=== PATIENT | female | born 1995 | race Two or more races ===

== ENCOUNTER 2021-08-05 16:16 | Outpatient (CLI) | payer OTHER | END 2021-08-05 17:21 | disposition home or self-care (01) | LOC: PRENATAL 16:16 | PROVIDERS: ATTEND Obstetrics & Gynecology Maternal & Fetal Medicine | DX: O35.0XX0 Maternal care for (suspected) central nervous system malformation in fetus, not applicable or unspecified (principal); O35.3XX0 Maternal care for (suspected) damage to fetus from viral disease in mother, not applicable or unspecified; Z3A.27 27 weeks gestation of pregnancy ==

== ENCOUNTER 2021-10-07 10:02 | Outpatient (CLI) | payer OTHER | END 2021-10-07 11:14 | disposition home or self-care (01) | LOC: PRENATAL 10:02 | PROVIDERS: ATTEND Obstetrics & Gynecology Maternal & Fetal Medicine | DX: O26.849 Uterine size-date discrepancy, unspecified trimester (principal); O36.8199 Decreased fetal movements, unspecified trimester, other fetus; O35.0XX0 Maternal care for (suspected) central nervous system malformation in fetus, not applicable or unspecified; Z3A.36 36 weeks gestation of pregnancy ==

== ENCOUNTER 2021-10-26 07:01 | Inpatient (IN) | payer OTHER ==
[~2021-10-26] VITALS: Ht 165.1 cm; Wt 97.5 kg
[2021-10-26] MEDS ORDERED: PRENATAL + DHA1 EAC1 PO (07:41)
[2021-10-26] MEDS ORDERED: TUMS200 MG PO (07:42)
== END 2021-10-28 14:25 | disposition home or self-care (01) | DRG 807 ==
LOC: LDR 07:01 → OB/GYN 07:01 → LDR 11-02 14:37
PROVIDERS: ADMIT Obstetrics & Gynecology; ATTEND Obstetrics & Gynecology
PROC: 10E0XZZ Delivery of Products of Conception, External Approach (ICD-10-PCS; principal; 2021-10-26)
PROC: 4A1HXCZ Monitoring of Products of Conception, Cardiac Rate, External Approach (ICD-10-PCS; 2021-10-26)
DX: O80 Encounter for full-term uncomplicated delivery (principal); Z37.0 Single live birth; Z3A.39 39 weeks gestation of pregnancy; Z20.822 Contact with and (suspected) exposure to COVID-19